=== PATIENT | female | born 1955 | race Caucasian/White ===

== ENCOUNTER 2019-02-08 03:58 | Inpatient (IN) ==
--- NOTE | 2019-02-01 08:23 | EKG Report ---
Test Performed on : 02/01/2019 07:44:29 AM Test Reason : PAT Blood Pressure : / mmHG Vent. Rate : 072 BPM Atrial Rate : 072 BPM P-R Int : 138 ms QRS Dur : 080 ms QT Int : 372 ms P-R-T Axes : 071 064 067 degrees QTc Int : 407 ms Normal sinus rhythm. Normal ECG When compared with ECG of 03-DEC-2018 17:03, (Unconfirmed) Nonspecific T wave abnormality no longer evident in Inferior leads QT has shortened Confirmed by Casper FRAZIER, Cj ([id number]) on 02/01/2019 6:05:33 PM
[2019-02-01 08:29] LABS: URINE SOURCE CLEAN CATCH
[2019-02-01 09:03] LABS: BASO# 0.05 X1000 (0.0-0.2); BASO% 0.8 % (0.0-0.8); EOS% 4.7 % (0.0-10.0); HEMOGLOBIN 13.4 g/dL (12.0-16.0); IMM GRAN# 0.03 X1000 (0.0-0.04); IMM GRAN% 0.5 % (0.0-0.5); LYMPH# 1.69 X1000 (1.2-3.4); LYMPH% 26.4 % (20.5-51.1); MCH 31.3 PG (27-31); MCHC 31.9 g/dL (33-37); MCV 98.1 FL (81-99); MONO# 0.59 X1000 (0.11-0.59); MONO% 9.2 % (1.7-9.3); MPV 10.1 FL (7.4-10.4); NEUT# 3.73 X1000 (1.4-6.5); NEUT% 58.4 % (42.2-75.2); PLT 417 X1000 (130-400); RBC 4.28 XMIL (4.2-5.4); WBC 6.39 X1000 (4.8-10.8)
[2019-02-01 09:07] LABS: BILIRUBIN URINE NEGATIVE (NEGATIVE); BLOOD URINE NEGATIVE (NEGATIVE); COLOR YELLOW; GLUCOSE URINE NEGATIVE (NEGATIVE); KETONE URINE NEGATIVE (NEGATIVE); LEUKOCYTES URINE SMALL (NEGATIVE); NITRITE URINE NEGATIVE (NEGATIVE); PROTEIN URINE TRACE mg/dL (NEGATIVE); SP GRAVITY URINE 1.016; TURBIDITY URINE CLEAR (CLEAR); UROBILINOGEN URINE NORMAL (NORMAL)
[2019-02-01 09:09] LABS: URINE BACTERIA 2+ /HPF; URINE RBC <10 /HPF (<10); URINE WBC <10 /HPF (<10)
[2019-02-01 09:13] LABS: INR 0.96; PROTIME 13.5 Seconds (11.0-16.0); PTT 28.6 Seconds (22.3-41.8)
[2019-02-01 09:17] LABS: UR EPITHELIAL CELLS <10 /HPF (<10)
[2019-02-01 09:24] LABS: AGAP 8; ALBUMIN 4.2 g/dL (3.5-5.0); BUN 12 mg/dL (8-22); CHLORIDE 100 mmol/L (98-107); COSMO 271; CREATININE 0.8 mg/dL (0.5-0.9); ESTIMATED GFR > 60; GLUCOSE 92 mg/dL (70-104); POTASSIUM 4.4 mmol/L (3.5-5.1); SODIUM 136 mmol/L (136-145); TCO2 28 mmol/L (25-35)
[2019-02-01 09:37] LABS: HEMOGLOBIN A1C 5.6 % (4.8-6.0)
[2019-02-08] MEDS ORDERED: DIPRIVAN 1% ONE ×2 (06:16→08:35)
[2019-02-08] MEDS ORDERED: FENTANYL ONE ×2 (06:16→08:25)
[2019-02-08] MEDS ORDERED: ZOFRAN ONE (06:18)
[2019-02-08] MEDS ORDERED: REGLAN ONE (06:32)
[2019-02-08] MEDS ORDERED: LR 1,000 ML ONE (06:32)
[2019-02-08] MEDS ORDERED: PEPCID ONE (06:32)
[2019-02-08] MEDS ORDERED: COLACE ONE (06:32)
[2019-02-08] MEDS ORDERED: CELEBREX ONE (06:32)
[2019-02-08] MEDS ORDERED: LYRICA ONE (06:32)
[2019-02-08] MEDS ORDERED: KEFZOL 1 GM/D5W 2 GM/100 ML IVPB ONE (06:32)
[2019-02-08] MEDS ORDERED: TORADOL ONE (07:24)
[2019-02-08] MEDS ORDERED: NEOSPORIN G.U. IRRIGANT ONE (07:24)
[2019-02-08] MEDS ORDERED: MARCAINE 0.25% PF ONE (07:24)
[2019-02-08] MEDS ORDERED: EXPAREL 1.3% ONE (07:24)
[2019-02-08] MEDS ORDERED: SODIUM CHLORIDE 0.9% ONE (07:24)
[2019-02-08] MEDS ORDERED: CYKLOKAPRON 1,000 MG/NS 1,000 MG/100 ML IVPB ONE (07:24)
[2019-02-08] MEDS ORDERED: DURAMORPH ONE (07:24)
[2019-02-08] MEDS ORDERED: SODIUM CHLORIDE 0.9% 20 ML ONE (08:51)
[2019-02-08] MEDS ORDERED: NEO-SYNEPHRINE ONE (08:51)
[2019-02-08 09:39] LABS: URINE SOURCE CATH
[2019-02-08 09:44] LABS: BILIRUBIN URINE NEGATIVE (NEGATIVE); BLOOD URINE NEGATIVE (NEGATIVE); COLOR YELLOW; GLUCOSE URINE NEGATIVE (NEGATIVE); KETONE URINE NEGATIVE (NEGATIVE); LEUKOCYTES URINE NEGATIVE (NEGATIVE); NITRITE URINE NEGATIVE (NEGATIVE); PH URINE 7.5; PROTEIN URINE 30 mg/dL (NEGATIVE); SP GRAVITY URINE 1.011; TURBIDITY URINE CLEAR (CLEAR); UR EPITHELIAL CELLS <10 /HPF (<10); URINE BACTERIA NEGATIVE /HPF; URINE RBC <10 /HPF (<10); URINE WBC <10 /HPF (<10); UROBILINOGEN URINE NORMAL (NORMAL)
[2019-02-08] MEDS ORDERED: NS 1,000 ML ONE (10:59)
[2019-02-08] MEDS ORDERED: OFIRMEV 1000 MG/ISOTONIC SOLN 1,000 MG/100 ML BOTTLE ONE (11:06)
[2019-02-08] MEDS ORDERED: OXY IR PO PRN ×2 (12:30)
[2019-02-08] MEDS ORDERED: MORPHINE IV PRN ×3 (12:30)
[2019-02-08] MEDS ORDERED: ZOFRAN ODT PO PRN (12:30)
[2019-02-08] MEDS ORDERED: MILK OF MAGNESIA PO PRN (12:30)
[2019-02-08] MEDS: ZOFRAN IV PRN (12:46)
[2019-02-08] MEDS: TYLENOL PO SCH ×2 (12:55→17:30)
[2019-02-08] MEDS: ULTRAM PO SCH ×2 (12:55→18:50)
[2019-02-08] MEDS: NS 1,000 ML IV SCH (12:58)
[2019-02-08 13:15] LABS: AGAP 9; BUN 13 mg/dL (8-22); CALCIUM 8.7 mg/dL (8.8-10.2); CHLORIDE 104 mmol/L (98-107); COSMO 279; CREATININE 0.8 mg/dL (0.5-0.9); ESTIMATED GFR > 60; GLUCOSE 120 mg/dL (70-104); POTASSIUM 4.6 mmol/L (3.5-5.1); SODIUM 139 mmol/L (136-145); TCO2 26 mmol/L (25-35)
[2019-02-08] MEDS: KEFZOL 2 GM/D5W 2 GM/50 ML IVPB IV SCH (17:30)
--- NOTE | 2019-02-08 18:04 | OPERATIVE NOTE ---
PROCEDURE DATE: 02/08/2019 PREOPERATIVE DIAGNOSIS: Right hip degenerative joint disease. POSTOPERATIVE DIAGNOSIS: Right hip degenerative joint disease. PROCEDURE: Right anterior total hip arthroplasty using a [facility] size 12 standard offset stem with a neutral neck length, 36 mm head, a 52 mm hemispherical shell with two 6.5 cancellous screws of 40 and 25 mm, and a 36 mm inside diameter acetabular liner. ANESTHESIA: Spinal. SURGEON: Richar Bolanos MD. COTTON STOMPER: Romi Cesar PA-C, who was present throughout the case and whose assistance was critical for exposure, placement of the implants, decision-making, and closure. Her assistance was necessary for successful completion of the case. BLOOD LOSS: Minimal. DRAINS: Hemovac x1. DESCRIPTION OF PROCEDURE: Patient was brought to the operative suite and placed in the supine position. After successful administration of spinal anesthesia, the patient was transferred to the OSI bed and then the right hip was prepped and draped in the usual sterile fashion. A longitudinal incision was made beginning 3 cm distal and 3 cm lateral to the anterior superior iliac spine, extending distally and slightly laterally 8 cm. It dissected sharply through the skin and subcutaneous tissue down to the tensor fascia. The tensor fascia was incised and dissected bluntly down to the deep tensor fascia. Deep tensor fascia was incised and circumflex vessels electrocauterized, exposing the anterior capsule. A T-capsulotomy was performed, exposing the femoral neck. Femoral neck cut was made with an oscillating saw. The femoral head was removed with a power corkscrew. The labrum was resected. The acetabulum was serially reamed to accept a 52 cup. The 52 cup was then driven into place in the proper amount inclination and anteversion and then two 6.5 cancellous screws were placed, a 40 mm superiorly and a 25 mm posterosuperiorly. Then the 36 mm inside diameter liner was locked onto the shell. Attention was directed to the femur. It was externally rotated, extended, and elevated out of the wound with the hook on the OSI bed. The lateral neck was rongeured. The canal was serially broached to a size 12. A size 12 standard offset neutral neck length head was trialed and found to be excellent leg length, fit and fill of the stem, and stability of the hip. The trial was then removed. The definitive stem was seated onto the femur and then the ceramic head was seated onto the Irene taper and the hip was again reduced. It was again found to be in excellent position. The cup was in good position as well with the proper amount inclination and anteversion. The anterior capsule was repaired with 0 V-Loc suture. The hip was copiously infiltrated with Exparel, including the posterior capsule, anterior capsule, anterior musculature, and subcutaneous tissue. A drain was placed deep to the tensor fascia and buried around the stem neck. The hip was copiously irrigated with normal saline containing irrigant and Vashe irrigation and then the tensor fascia was closed with a 0 V-Loc suture. Skin edge approximated with 2-0 Vicryl, closed with 4-0 Monocryl and a Prineo sterile dressing. The patient tolerated the procedure well without complication. At the end the procedure, all counts correct x2. The patient was transferred to the recovery room in stable condition. cc: Richar Bolanos MD
[2019-02-08] MEDS: PERIDEX MT SCH (20:43)
[2019-02-08] MEDS ORDERED: LYRICA PO SCH (21:00)
[2019-02-08] MEDS ORDERED: CELEBREX PO SCH (21:00)
[2019-02-09] MEDS: KEFZOL 2 GM/D5W 2 GM/50 ML IVPB IV SCH (00:12)
[2019-02-09] MEDS: NS 1,000 ML IV SCH ×3 (00:13→18:43)
[2019-02-09] MEDS: COLACE PO SCH ×3 (00:57→21:20)
[2019-02-09] MEDS: TYLENOL PO SCH ×4 (01:05→18:42)
[2019-02-09] MEDS: ULTRAM PO SCH ×2 (01:05→07:07)
[2019-02-09] MEDS: ZOFRAN IV PRN ×2 (05:29→11:54)
[2019-02-09 06:36] LABS: HEMATOCRIT 33.9 % (37.0-47.0); HEMOGLOBIN 10.6 g/dL (12.0-16.0)
[2019-02-09] MEDS: XARELTO PO SCH (07:05)
[2019-02-09] MEDS: PRILOSEC PO SCH (07:06)
[2019-02-09] MEDS ORDERED: DECADRON IV ONE (09:00)
[2019-02-09] MEDS ORDERED: ZOFRAN ODT PO PRN (09:00)
[2019-02-09] MEDS: PERIDEX MT SCH ×2 (12:07→21:20)
[2019-02-09] MEDS ORDERED: DILAUDID IV PRN (13:00)
[2019-02-09] MEDS ORDERED: ULTRAM PO PRN (13:08)
[2019-02-09] MEDS ORDERED: CELEBREX PO PRN (13:08)
[2019-02-09] MEDS ORDERED: LYRICA PO PRN (13:08)
[2019-02-09] MEDS: SODIUM CHLORIDE 0.9% INJ PRN ×2 (13:56→21:20)
[2019-02-09] MEDS: PHENERGAN IV PRN ×2 (13:56→21:20)
--- NOTE | 2019-02-09 16:11 | ORTHOPAEDICS PROGRESS NOTE ---
DATE: 02/09/2019 SUBJECTIVE: Ms. Ramires is a 63-year-old female who is postoperative day 1 from a right anterior total hip arthroplasty. She states yesterday she was doing well but last night she started to develop some nausea and vomiting. She continues to complain of nausea and vomiting. She has some pain in her right hip but she is mainly complaining of the nausea. OBJECTIVE: General: She is a well-developed, well-nourished female. She is alert, oriented, and cooperative with the examination. She is in acute distress. Vital signs: Stable. She is afebrile. Extremities: Her right hip incision is clean, dry, and intact without sign of infection. Her right leg is grossly neurovascularly intact. LABS: Hemoglobin is 10.6, hematocrit is 33.9. She has had 105 mL of drainage from her Hemovac drain. ASSESSMENT: Stable postoperative day 1 from a right anterior total hip arthroplasty with postoperative nausea. PLAN: She has not been able to get up with physical therapy yet due to her nausea. She did just receive a dose of Zofran so we will see how she does with that. If her nausea improves and she does well with physical therapy, we will discharge her home with outpatient physical therapy. She is instructed to follow up to see Dr. Bolanos next Wednesday. If she continues to have nausea and is unable to ambulate with physical therapy, we will have her stay one more night and plan to discharge her home tomorrow. Dictated by RIGOBERTO Mg for Richar Bolanos MD cc: RIGOBERTO Mg MD
[2019-02-09] MEDS: LOPRESSOR PO SCH (17:59)
[2019-02-09] MEDS: COZAAR PO SCH (17:59)
[2019-02-09] MEDS: LIPITOR PO SCH (18:00)
[2019-02-09] MEDS: LEXAPRO PO SCH (18:00)
[2019-02-10] MEDS: TYLENOL PO SCH ×2 (07:30→07:31)
[2019-02-10] MEDS: XARELTO PO SCH (07:30)
[2019-02-10] MEDS: PRILOSEC PO SCH (07:30)
[2019-02-10 07:47] VITALS: BP 139/58
[2019-02-10] MEDS: PERIDEX MT SCH (08:10)
[2019-02-10] MEDS: LIPITOR PO SCH (08:11)
[2019-02-10] MEDS: LEXAPRO PO SCH (08:11)
[2019-02-10] MEDS: COZAAR PO SCH (08:11)
[2019-02-10] MEDS: COLACE PO SCH (08:11)
[2019-02-10] MEDS: LOPRESSOR PO SCH (08:11)
--- NOTE | 2019-02-11 12:01 | DISCHARGE SUMMARY ---
ADMISSION DATE: 02/08/2019 DISCHARGE DATE: 02/10/2019 DISCHARGE DIAGNOSIS: Right hip degenerative joint disease status post right anterior total hip arthroplasty. DISCHARGE MEDICATIONS: See discharge medication list. DISPOSITION: The patient discharged home with instructions for an outpatient total hip arthroplasty protocol, physical therapy. Instructed to return for any signs or symptoms of infection or deep venous thrombosis. Instructed to return to see Dr. Bolanos's PA, Romi Cesar, next for dressing removal. She will return to see Dr. Bolanos 3 weeks from there. She is instructed to return for any signs or symptoms of infection or deep venous thrombosis. HOSPITAL COURSE: On the day of admission patient underwent a right total hip arthroplasty. Her postoperative course was complicated by intractable nausea. Once we got that under control, her ambulation began to dramatically improve and at discharge she is afebrile, tolerating a regular diet, ambulating well with physical therapy. Her wound is clean, dry, and intact without sign of infection. She is discharged home in stable condition with instructions to follow up as described above. cc: Richar Bolanos [facility]
== END 2019-02-10 10:18 | disposition home or self-care (01) | DRG 470 ==
LOC: SURHOLD 03:58 → 4N 09:17
PROVIDERS: ADMIT Orthopaedic Surgery; ATTEND Orthopaedic Surgery
CPT/HCPCS: 76000; 77080; 80048; 81001; 82040; 83036; 85014; 85018; 85025; 85610; 85730; 86850; 86900; 86901; 88304; 88311; 93005; 93010; 94760; 94761; 94799; 97110; 97162; 97530; A9270; C9290; J0131; J0690; J1885; J2270; J2274; J2275; J2370; J2405; J2550; J3010; J7030; J7120; Q9974; S0020